=== PATIENT | female | born 1930 | race Caucasian/White ===

== ENCOUNTER → 2018-03-23 | Outpatient (CLI) | payer MEDICARE ==
[~2018-03-23] MED LIST: ACETAMINOPHEN650 M5 PO; ASPIRIN325 PO; CALTRATE PLUS1 EACH PO; CELEXA 20 MG TA20 M1 PO; CIPROFLOXACIN500 M1 PO; DIFLUCAN PO; DIGITEK125 MC1 PO; ESTRACE1 MG PO; FLAGYL500 MG PO; FLECAINIDE ACET50 M1 PO; IRON325 PO; LANOXIN 0.120.125 M1 PO; LOPERAMIDE 2 MG2 M1 PO; ONE DAILY 50 P1 EAC1 PO; PROTONIX 20 MG20 M1 PO; SIMVASTATIN80 MG PO
== END ==
LOC: M.CT 09:45
DX: G31.9 Degenerative disease of nervous system, unspecified (principal); I48.91 Unspecified atrial fibrillation; E78.5 Hyperlipidemia, unspecified

== ENCOUNTER → 2018-03-28 | Outpatient (CLI) | payer MEDICARE | LOC: M.RAD 13:28 → M.ULTRA 14:00 → M.MRI 14:30 | DX: J98.11 Atelectasis (principal); G45.9 Transient cerebral ischemic attack, unspecified; I51.7 Cardiomegaly; K44.9 Diaphragmatic hernia without obstruction or gangrene; N20.0 Calculus of kidney; R09.89 Other specified symptoms and signs involving the circulatory and respiratory systems ==

== ENCOUNTER → 2018-04-12 | Outpatient (CLI) | payer MEDICARE | LOC: M.MRI 10:53 | DX: R41.0 Disorientation, unspecified (principal); R42 Dizziness and giddiness; Z86.73 Personal history of transient ischemic attack (TIA), and cerebral infarction without residual deficits ==

== ENCOUNTER → 2018-09-12 | Outpatient (CLI) | payer MEDICARE | LOC: M.CT 13:00 | DX: K44.9 Diaphragmatic hernia without obstruction or gangrene (principal); N20.0 Calculus of kidney; D64.9 Anemia, unspecified; M47.815 Spondylosis without myelopathy or radiculopathy, thoracolumbar region; M41.85 Other forms of scoliosis, thoracolumbar region; Z90.710 Acquired absence of both cervix and uterus ==

== ENCOUNTER → 2018-10-18 | Outpatient (CLI) | payer MEDICARE ==
[2018-10-18 11:50] VITALS: BP 122/74
[2018-10-18 13:30] VITALS: BP 118/70
--- NOTE | 2018-10-18 13:57 | NUR ---
LEFT BASILIC ACCESSED FOR 4 PASHTO SINGLE LUMEN MIDLINE. LINE PRE-TRIMMED TO 10 CM AND ADVANCED TO THE ZERO ROQUE WITH NO RESISTANCE MET. UPPER ARM CIRCUMFERENC ABOVE INSERTION SITE = 10 1/2". INFORMATION PAMPHLET GIVEN ON LINE CARE AND MAINTENANCE, PATIENT TOLERATED PROCEDURE WELL. STYLET REMOVED LINE FLUSHED WITH EASE.
== END ==
LOC: M.INFUS 05:56
DX: D50.9 Iron deficiency anemia, unspecified (principal)

== ENCOUNTER → 2018-10-20 | Outpatient (CLI) | payer MEDICARE | LOC: M.INFUS 07:42 | DX: D50.9 Iron deficiency anemia, unspecified (principal); I48.91 Unspecified atrial fibrillation; E78.5 Hyperlipidemia, unspecified; Z90.710 Acquired absence of both cervix and uterus ==

== ENCOUNTER → 2018-10-22 | Outpatient (CLI) | payer MEDICARE ==
[2018-10-22 11:58] VITALS: BP 108/50
[2018-10-22 12:33] VITALS: BP 110/54
--- NOTE | 2018-10-22 12:43 | NUR ---
ARRIVED AMBULATORY. MADE SELF COMFORTABLE IN RECLINER. LEFT UPPER ARM MIDLINE INTACT. PT HAD PLACED LARGE BANDAID OVER TO TO HOLD END OF MIDLINE DOWN. UNABLE TO REMOVE BANDAID WITH OUT PUILLING TEGADERM AT SAME TIME. DRESSING WAS REMOVED AND REPLACED. PT EDUCATION COMPLETED. MIDLINE PATENT NO BLOOD RETURN NOTED BUT EASY FLUSH. PT DENEIS ADVERSE REACTION TO MEDICATION OR MIDLINE. INFUSION COMPLETED. MIDLINE FLUSHED. 4X4 AND STOCKINETTE OVER MIDLINE.
== END ==
LOC: M.INFUS 01:04
DX: D50.9 Iron deficiency anemia, unspecified (principal); I48.91 Unspecified atrial fibrillation; E78.5 Hyperlipidemia, unspecified

== ENCOUNTER → 2018-10-24 | Outpatient (CLI) | payer MEDICARE ==
[2018-10-24 12:12] VITALS: BP 122/78
--- NOTE | 2018-10-24 13:34 | NUR ---
ARRIVED AMBULAORY. MADE SELF COMFORTABLE IN RECLINER. COMPLAINT OF MIDLINE ARM BEING SORE. LINE PATNENT WITH EASY FLUSH AND MINMAL BLOOD RETURN. AREA NOTED TO HAVE IN CREASE IN CERCUMFANCE. TODAY'S INFUSION COMPLETED AND MIDLINE REMOVED WITH PLAN OF NEW LINE BEING PLACED TO CONTINUE THERAPY ON 10/26/18. PT VOICED UNDERSTANDING AND AGREED. DENEIS QUESTIONS OR NEEDS AT DISCHARGE.
== END ==
LOC: M.INFUS 04:33
DX: D50.9 Iron deficiency anemia, unspecified (principal); I48.91 Unspecified atrial fibrillation; E78.5 Hyperlipidemia, unspecified

== ENCOUNTER → 2018-10-26 | Outpatient (CLI) | payer MEDICARE ==
--- NOTE | 2018-10-26 12:55 | NUR ---
ARRIVED AMBULATORY. PT REQUEST PIV IN PLACE OF MIDLINE. NEW IV PLACED. INFUSION COMPLETED AND TOLERATED WELL. IV SALINE LOCKED. PT DENEIS QUESTIONS OR NEEDS AT DISCHARGE.
== END ==
LOC: M.INFUS 03:47
DX: D50.9 Iron deficiency anemia, unspecified (principal); I48.91 Unspecified atrial fibrillation; E78.5 Hyperlipidemia, unspecified

== ENCOUNTER → 2018-10-28 | Outpatient (CLI) | payer MEDICARE | LOC: M.INFUS 07:44 | DX: D50.9 Iron deficiency anemia, unspecified (principal); I48.91 Unspecified atrial fibrillation; E78.5 Hyperlipidemia, unspecified ==

== ENCOUNTER → 2018-10-30 | Outpatient (CLI) | payer MEDICARE | LOC: M.INFUS 07:45 | DX: D50.9 Iron deficiency anemia, unspecified (principal); I48.91 Unspecified atrial fibrillation; E78.5 Hyperlipidemia, unspecified ==